=== PATIENT | male | born 1985 | race Hispanic/Latino ===

== ENCOUNTER 2022-02-12 12:58 | Emergency (ER) | payer OTHER ==
[~2022-02-12] VITALS: Ht 170.2 cm; Wt 114.3 kg
[2022-02-12] MEDS ORDERED: DICYCLOMINE HCL10 MG PO (15:39)
[2022-02-12] MEDS ORDERED: ONDANSETRON ODT8 MG PO (15:39)
== END 2022-02-12 15:54 | disposition home or self-care (01) ==
LOC: ED 12:58
DX: K52.9 Noninfective gastroenteritis and colitis, unspecified (principal)
CPT/HCPCS: 36415; 74177; 80053; 81001; 83690; 85025; 85060; 96361; 96375; 99284-25; J1885; J2405; J7030; Q9967